=== PATIENT | female | born 1940 | race Caucasian/White ===

== ENCOUNTER 2017-03-18 17:42 | Inpatient (IN) | payer MEDICARE, OTHER ==
[~2017-03-18] VITALS: Ht 165.1 cm; Wt 70.5 kg
[2017-03-18] MEDS ORDERED: LUTE20TA PO (17:55)
[2017-03-18] MEDS ORDERED: FAMO20TA PO (17:55)
[2017-03-18] MEDS ORDERED: ASPI81TA85 PO (17:55)
[2017-03-18] MEDS ORDERED: COSO1SOL3 OD (17:55)
[2017-03-18] MEDS ORDERED: LEVO112T2 PO (17:55)
[2017-03-18] MEDS ORDERED: MIRA0.5T PO (17:55)
[2017-03-18] MEDS ORDERED: CALTCHW4 PO (17:55)
[2017-03-18] MEDS ORDERED: MORPHINE 4 MG/ML 1ML SYRINGE IV ONE (18:15)
[2017-03-18] MEDS ORDERED: ONDANSETRON 4MG/2ML VIAL (J2405) IV ONE (18:15)
--- NOTE | 2017-03-18 19:24 | REP ---
Clinical: Trauma. Technique: AP, lateral, bilateral oblique views of the left wrist. Findings: Advanced osteopenia and diffuse chronic arthritic degenerative changes are appreciated which somewhat limit evaluation for acute injury. However, acute intra-articular fracture of the distal radius as well as a possible acute transverse fracture through the scaphoid waist are suggested. Impression: 1. Limited by a advanced osteopenia and diffuse degenerative changes. 2. Acute intra-articular fracture of the distal radius and acute nondisplaced fracture of the scaphoid waist are suggested. Signed by Maynor Miles MD 03/18/2017 07:15 P
--- NOTE | 2017-03-18 19:26 | REP ---
Clinical: Trauma. Technique: AP view of the pelvis with neutral and cross-table lateral views of the left hip. Findings: Acute comminuted intertrochanteric fracture of the left hip is appreciated. Screws suggest prior femoral neck fracture pinning. Impression: Acute comminuted intertrochanteric fracture of the left hip. Signed by Maynor Miles MD 03/18/2017 07:17 P
[2017-03-18] MEDS ORDERED: SODIUM CHLORIDE 0.9% 1000 ML IV ONE (19:30)
[2017-03-18 19:40] LABS: MEAN CORPUSCULAR HGB CONC 32.5 g/dl (32.0-36.5); MEAN CORPUSCULAR VOLUME 98.3 fl (80.0-96.0); RED CELL DISTRIBUTION WIDTH 12.2 % (11.5-14.5); WHITE BLOOD COUNT 18.7 K/mm3 (4.0-10.0)
[2017-03-18 19:43] LABS: INR 1.01
[2017-03-18 19:49] LABS: CALCIUM LEVEL 9.1 MG/DL (8.8-10.2); CREATININE FOR GFR 1.23 MG/DL (0.55-1.02); GLOMERULAR FILTRATION RATE 45.1 (>39); POTASSIUM SERUM 4.4 MEQ/L (3.5-5.1)
[2017-03-18] MEDS ORDERED: VITMTA PO (19:57)
[2017-03-18] MEDS ORDERED: CALCCAP PO (19:57)
[2017-03-18] MEDS ORDERED: FAMO40TA3 PO (19:57)
[2017-03-18] MEDS ORDERED: DORZ2SOL5 OU (19:57)
[2017-03-18] MEDS ORDERED: TYLE650T35 PO (19:57)
[2017-03-18] MEDS ORDERED: ASPI81TAEC PO (19:57)
[2017-03-18] MEDS ORDERED: BRIM1OPD OS (19:57)
--- NOTE | 2017-03-18 20:17 | ECGEPIP ---
Stationary ECG Study [facility] - ED Test Date: 2017-03-18 Pat Name: ISAIAH FABIAN Department: Room: - Gender: F Resident Services Director: terrance : 1940 Requested By: Destiny Corey Order Number: [id number] Reading MD: Poncho Medina Measurements Intervals [place] Rate: 79 P: 70 WA: 158 QRS: 63 QRSD: 84 T: 66 QT: 379 QTc: 437 Interpretive Statements SINUS RHYTHM INC. RBBB POSSIBLE LAE NO PRIORS Electronically Signed On 03-18-2017 20:17:17 EDT by Poncho Medina
--- NOTE | 2017-03-18 20:24 | REP ---
Clinical: Preoperative assessment . Comparison: None . Findings: The mediastinum and cardiac silhouette are stable and within normal limits for portable technique. Airway is patent and midline. The lung herman demonstrate diffuse chronic interstitial changes without acute consolidation, effusion, or pneumothorax. Skeletal structures are intact. Impression: Chronic interstitial changes. No acute cardiopulmonary process appreciated. Signed by Maynor Miles MD 03/18/2017 08:16 P
[2017-03-18] MEDS ORDERED: COSOPT OCUMETER PLUS 10ML (DORZOLAMIDE/TIMOLOL) OU SCH (21:00)
[2017-03-18] MEDS ORDERED: BRIMONIDINE 0.1% OPHTH SOLN 5 ML OS SCH (21:00)
[2017-03-18] MEDS ORDERED: NS 1,000 ML IV SCH (21:12)
[2017-03-18] MEDS ORDERED: MORPHINE 4 MG/ML 1ML SYRINGE IV PRN (21:15)
[2017-03-18] MEDS ORDERED: MORPHINE 2 MG/ML 1ML SYRINGE IV PRN (21:15)
[2017-03-18] MEDS ORDERED: ACETAMINOPHEN 650MG ER TAB (TYLENOL ARTHRITIS) PO PRN (21:15)
[2017-03-18] MEDS ORDERED: ONDANSETRON 4MG/2ML VIAL (J2405) IV PRN (21:15)
--- NOTE | 2017-03-18 21:17 | IPNPDOC ---
VS, I&O, 24H, Fishbone Vital Signs/I&O Vital Signs Date Time Temp Pulse Resp B/P (MAP) Pulse Ox O2 Delivery O2 Flow Rate FiO2 03/18/17 20:41 86 107/57 (74) 03/18/17 19:57 97.6 20 95 Room Air Pt seen and examined by me. Chart and ecg reviewed by me. Pt h/o of hypothyroidism, RLS s/p mech fall with fx. Pt no hx of exertional cp, dyspnea, CAD and ecg no evidence of high degree AV block. Pt is low risk for a low-risk procedure (L ORIF) and may proceed to OR w/o additional cardiac work-up. Full note to follow. Laboratory Data 24H LABS Laboratory Tests 2 03/18/17 18:44: Prothrombin Time 13.4, Prothromb Time International Ratio 1.01, Anion Gap 12, Glomerular Filtration Rate 45.1, Blood Urea Nitrogen 26H, Creatinine 1.23H, Sodium Level 141, Potassium Level 4.4, Chloride Level 105, Carbon Dioxide Level 24, Calcium Level 9.1 CBC/BMP Laboratory Tests 03/18/17 18:44 Red Blood Count 3.38 L, Mean Corpuscular Volume 98.3 H, Mean Corpuscular Hemoglobin 32.0, Mean Corpuscular Hemoglobin Concent 32.5, Red Cell Distribution Width 12.2, Calcium Level 9.1 Maverick Carranza MD Mar 18, 2017 21:17
[2017-03-18] MEDS ORDERED: ceFAZolin 1GM INJ (J0690) As Ordered ONE (22:07)
[2017-03-18] MEDS ORDERED: BUPIVACAINE HCL 0.5% 30 ML VIAL As Ordered ONE (23:09)
[2017-03-18] MEDS ORDERED: KETAMINE HCL 200 MG/20 ML VIAL As Ordered ONE (23:09)
[2017-03-18] MEDS ORDERED: PROPOFOL 200 MG/20 ML VIAL As Ordered ONE (23:09)
[2017-03-18] MEDS ORDERED: MIDAZOLAM INJ 2 MG/2 ML VIAL (J2250) As Ordered ONE (23:09)
[2017-03-18] MEDS ORDERED: fentaNYL 100 MCG/2 ML INJECTION (J3010) As Ordered ONE (23:09)
[2017-03-18] MEDS ORDERED: PHENYLephrine HCL 500 MCG/5 ML (100MCG/ML) SYRINGE (J2370) As Ordered ONE ×2 (23:09→23:28)
[2017-03-18] MEDS ORDERED: LIDOCAINE 2% INJ 100 MG/5 ML SDV (FOR ANES.) As Ordered ONE (23:09)
[2017-03-19] VITALS (9 sets, daily range): BP systolic 85–120; BP diastolic 44–56
[2017-03-19] MEDS ORDERED: ONDANSETRON 4MG/2ML VIAL (J2405) IV PRN (01:15)
[2017-03-19] MEDS ORDERED: PERCOCET 5MG/325MG TAB PO PRN ×2 (01:15→02:00)
[2017-03-19] MEDS ORDERED: LR 1,000 ML IV SCH (01:15)
[2017-03-19] MEDS ORDERED: METOCLOPRAMIDE INJ 10MG/2ML VIAL (J2765) IV PRN (01:15)
[2017-03-19] MEDS ORDERED: MEPERIDINE INJ 25 MG/ML VIAL (J2175) IV PRN (01:15)
[2017-03-19] MEDS ORDERED: fentaNYL 100 MCG/2 ML INJECTION (J3010) IV PRN (01:15)
[2017-03-19] MEDS ORDERED: MEPERIDINE INJ 25 MG/ML VIAL (J2175) As Ordered ONE (01:17)
[2017-03-19] MEDS ORDERED: MORPHINE 2 MG/ML 1ML SYRINGE IV PRN (02:00)
[2017-03-19] MEDS ORDERED: NS 1,000 ML IV SCH (02:00)
[2017-03-19] MEDS: ceFAZolin SOD 1 GM in D5W MINI-BAG PLUS 50 ML IV SCH ×2 (05:07→14:07)
[2017-03-19] MEDS: LEVOTHYROXINE 112MCG TABLET (0.112MG) PO SCH (05:07)
[2017-03-19 07:10] LABS: MEAN CORPUSCULAR HEMOGLOBIN 32.5 pg (27.0-33.0); MEAN CORPUSCULAR HGB CONC 33.3 g/dl (32.0-36.5); MEAN CORPUSCULAR VOLUME 97.4 fl (80.0-96.0)
[2017-03-19 07:25] LABS: CALCIUM LEVEL 7.7 MG/DL (8.8-10.2); CREATININE FOR GFR 1.04 MG/DL (0.55-1.02); GLOMERULAR FILTRATION RATE 54.7 (>39); PHOSPHORUS LEVEL 4.9 MG/DL (2.5-4.9); POTASSIUM SERUM 4.3 MEQ/L (3.5-5.1)
--- NOTE | 2017-03-19 07:37 | REP ---
Clinical: Left hip fracture. Technique: AP and cross-table lateral views of the left femur. Findings: The the patient is status post intramedullary forest placement and kneeling through the femoral head/neck for acute intertrochanteric fracture. Satisfactory reduction. Overlying postoperative changes appreciated. Prior left knee replacement noted. Impression: Status post open reduction and fixation for acute intertrochanteric femoral fracture. Signed by Maynor Miles MD 03/19/2017 07:29 A
--- NOTE | 2017-03-19 07:38 | REP ---
Clinical: Left hip fracture. Technique: Single AP view of the pelvis. Findings: The patient is status post open reduction and fixation for left intertrochanteric hip fracture. Overlying postsurgical changes are appreciated. The pelvis appears intact. Evidence for prior right hip replacement. Impression: Postoperative changes related to left hip fracture. Signed by Maynor Miles MD 03/19/2017 07:30 A
--- NOTE | 2017-03-19 08:05 | REP ---
Clinical: Hardware removal. Technique: Intraoperative fluoroscopic imaging. Findings: The patient is status post hardware removal and open reduction/fixation for intertrochanteric femoral neck fracture. Final images demonstrate intramedullary forest and pinning through the femoral head neck with satisfactory reduction. Total fluoroscopic time 2 minutes 42 seconds. Impression: Status post open reduction and fixation for intertrochanteric femoral neck fracture. Signed by Maynor Miles MD 03/19/2017 07:57 A
[2017-03-19] MEDS: ENOXAPARIN 40 MG/0.4 ML SYRINGE (J1650) SC SCH (09:36)
[2017-03-19] MEDS: MIRALAX *UNIT DOSE* 17GM PACKET PO SCH (09:36)
[2017-03-19] MEDS: MOM 30ML SUSPENSION UDC PO SCH (09:36)
[2017-03-19] MEDS: COSOPT OCUMETER PLUS 10ML (DORZOLAMIDE/TIMOLOL) OU SCH ×2 (09:36→20:39)
[2017-03-19] MEDS: FAMOTIDINE 20 MG TAB PO SCH (09:36)
[2017-03-19] MEDS: SENOKOT S TAB PO SCH ×2 (09:36→20:39)
[2017-03-19] MEDS: BRIMONIDINE 0.1% OPHTH SOLN 5 ML OS SCH ×3 (09:36→20:39)
[2017-03-19] MEDS: PERCOCET 5MG/325MG TAB PO PRN ×3 (09:37→21:41)
--- NOTE | 2017-03-19 11:01 | RO ---
DATE OF PROCEDURE: 03/18/2017 PREOPERATIVE DIAGNOSIS: Left intertrochanteric hip fracture with retained hardware. POSTOPERATIVE DIAGNOSIS: Left intertrochanteric hip fracture with retained hardware, plus femoral shaft fracture. PROCEDURE PERFORMED: Left hip hardware removal, open reduction and cephalomedullary nailing. SURGEON: Daniel Bell MD POTTERY KILN BUILDER: JEN Horne, assistant broker. ANESTHESIA: Spinal. ESTIMATED BLOOD LOSS: 250 mL. IMPLANTS: Synthes trochanteric fixation nail, long. COMPLICATION: There was a femoral shaft fracture. No blood administered. DESCRIPTION OF PROCEDURE: The patient was identified in the preoperative holding area by name, medical record number and date of . The surgical site was marked in consultation with the patient and she was evaluated by anesthesia. When she was ready she was brought back to the operative suite on a gurney and transferred to the OR table. At this point, spinal anesthesia was induced without complication and she was transferred to the fracture table with the left lower extremity secured in the traction boot, appropriately padding all bony prominences. The left lower extremity was next sterilely prepped and draped in the usual fashion and prior to beginning the procedure, a final time out was performed and all agreed. She was given IV antibiotics prior to incision. I began the procedure by making a longitudinal dissection on the lateral thigh dissecting down to the skin and subcutaneous fat. I identified and removed the three cannulated hip screws without difficulty. Next, I performed a reduction of the left intertrochanteric hip fracture with traction, adduction and slight internal rotation. This resulted in a satisfactory reduction of the main fracture line. Next, through an incision proximal to the tip of the greater trochanter, the sharp awl was inserted and the correct entry point was identified. Using the awl, which was inserted into the medullary canal followed by the ball tipped Guidewire, followed by the entry reamer. Next, an intermediate nail was inserted and it confirmed a satisfactory intramedullary position with AP and lateral fluoroscopy. Next, the cephalic portion of the nail screw was inserted and appropriately sized, and at this point when turning to the distal interlock, it did identify a transverse fracture which had propagated just proximal to the tip of the nail but also distal to the interlock. As such, we elected to go forward with a long intramedullary nail to span the fracture site appropriately, and so the nail and the cephalomedullary screw were removed in their entirety and again confirmed satisfactory reduction and I reinserted the ball tipped Guidewire. Next, I sequentially reamed up to 12.5 achieving satisfactory chatter on the cortex. Next, an appropriately sized long trochanteric fixation nail was inserted and confirmed in satisfactory position with multiple fluoroscopic views in AP and lateral. Next, the head and neck guidepin and screw were inserted and locked proximally with satisfactory position and multiple fluoroscopic planes. Following this distally, a perfect [place] technique was used to place two distal interlock screws. Final fluoroscopic views in AP and lateral planes confirmed a satisfactory reduction of the fracture and placement of all hardware including a live fluoroscopy from full lateral to full AP confirmed that the tip of the femoral head screw was close to, but not penetrating the subchondral bone or the joint surface of the hip. So the wounds were next copiously irrigated and closed in layers. Of note, I did back off the proximal locking portion of the nail in order to allow some subsidence and compression with the fracture site. The wounds were again copiously irrigated and closed in layers. Sterile dressings were applied. The patient was brought out of anesthesia and transferred to the postanesthesia care unit (PACU) in stable condition.
--- NOTE | 2017-03-19 11:05 | HPE ---
DATE OF ADMISSION: 03/18/2017 CHIEF COMPLAINT: Left hip pain, left wrist pain, status post fall. HISTORY OF PRESENT ILLNESS: The patient missed a step this morning around 10:30 while visiting in [place] injuring her left hip and her left wrist with immediate pain and inability to bear weight. She was brought to the emergency room in [place] and ultimately elected to have her drive her here for care. She presents to the emergency room again complaining of isolated pain to the left hip and left wrist. There is no other active complaints. PAST MEDICAL HISTORY: Significant for hypothyroidism, multiple musculoskeletal issues including right hip replacement in 2014, bilateral total knee replacements, and left hip fracture repair in 2009. She does have a history of hypothyroidism and takes thyroxine daily as well as restless legs and takes Mirapex. PAST SURGICAL HISTORY: As above. MEDICATIONS: As above. Also a multivitamin and aspirin 81 mg nightly. REVIEW OF SYSTEMS: No fevers, chills, nausea, vomiting. No diarrhea. No constipation. No chest pain. No shortness of breath. ALLERGIES: None known. EXAMINATION: Awake, alert, and oriented times three. Well-appearing female in no acute distress. Appropriately dressed, well-nourished. Head is normocephalic, atraumatic. Extraocular muscles intact. Cervical spine: Range of motion is comfortable, pain free. Right upper extremity range of motion is comfortable and pain free. Right lower extremity range of motion is comfortable and generally pain free. Focus examination in the left hip: She has pain and tenderness isolating to the left hip joint where the local skin is intact. There is some local swelling distally. She has 2+ dorsalis pedis and posterior tibialis pulse with less than 2 seconds capillary refill in all of her toes with sensation intact to light touch. She has intact extensor hallucis longus (EHL), flexor hallucis longus (FHL), tibialis anterior, tibialis posterior. She has well-healed incisions about her left hip and left knee consistent with her prior surgeries. Focus examination of the left upper extremity: She has swelling and ecchymosis about the distal radius area. There is a slight superficial abrasion on this area. Range of motion generally is very comfortable. She is able to make a full composite fist and she is fully neurovascularly intact. She is able to flex and extend about 20-30 degrees very comfortably. Ipsilateral elbow and shoulder is generally atraumatic and comfortable range of motion. X-rays of the left wrist show an apparently acute nondisplaced intraarticular distal radius fracture as well as a scaphoid waist fracture and significant degenerative arthritis of the carpal joint. AP pelvis and left hip x-rays show the previous right total hip replacement as well as a previous left hip femoral neck fracture pending screws in place with an intertrochanteric fracture on the left hip, which is shortened and displaced extending to the lesser trochanter as well. ASSESSMENT: 1. Left hip retained hardware and intertrochanteric fracture. 2. Nondisplaced left scaphoid waist and distal radius fracture. PLAN: At this time, the hospitalist will evaluate, admit and provide preoperative clearance. I have discussed this as well with the hospitalist right now. He has cleared the patient to go forward with the surgery. I discussed the risks and benefits of treatment options with the patient. The surgical and nonsurgical management were discussed at length and ultimately, she did sign a consent to go forward with the left hip, open hardware removal, reduction and fracture repair with likely cephalomedullary nail, which will be done this evening if possible. In initially discussed the treatment options for her left wrist. She has had a previous similar fracture on the contralateral extremity and she is very comfortable with conservative management which would allow her maximum convenience and so she was placed in a thumb spica splint, she which had tolerated very well. She is very comfortable in that. She will have activity restrictions to protect the left hand and wrist. This is certainly non-weight bearing and a followup examination to discuss that these fractures could potentially displace and potentially she would be better managed in a splint or hard cast, but she has declined that at this time given her other extremity injuries, she would like to maintain more mobility and usage of her left hand, which is understandable.
[2017-03-19] MEDS: MULTIVITAMINS/MINERALS THERAP 1 TAB PO SCH (20:39)
[2017-03-19] MEDS: ASPIRIN 81 MG ENTERIC TAB PO SCH (20:39)
--- NOTE | 2017-03-19 22:24 | IPN ---
DATE: 03/19/2017 SUBJECTIVE: The patient is seen and examined in the room today. The patient does not have any acute complaints or acute changes. The patient tolerated the procedure well. The patient still has some discomfort at the right wrist from the fall. Pain medication has been able to help her manage the pain. OBJECTIVE: VITAL SIGNS: Temperature is 98.3, pulse is 89, respirations 16, blood pressure is 99/54. Pulse oximetry is 98% with 3 liters nasal cannula. GENERAL: No sign of acute distress. Alert and oriented times three. HEENT: Normocephalic, atraumatic. Extraocular motors are grossly intact. CARDIOVASCULAR: S1, S2. Regular rate. LUNGS: Clear to auscultation bilaterally. ABDOMEN: Soft, nontender, nondistended. Bowel sounds present. MUSCULOSKELETAL: There is a soft splint at the left wrist. No lower extremity edema. No sign of cyanosis. LABORATORY DATA: WBC 14, hemoglobin 7.9, hematocrit 22.5, platelet count is 211. Sodium is 142, potassium 4.3, chloride is 108, carbon dioxide 24, BUN 27, creatinine 1.04, GFR is 54.7, fasting glucose 122, calcium 7.7, phosphorous 4.9, magnesium 2. ASSESSMENT AND PLAN: 1. Left hip intertrochanteric fracture and left nondisplaced scaphoid, wrist and distal radius fracture. The patient had surgical repair on 03/18/2017 in the evening time and tolerated the procedure well; however, the patient did have blood loss that resulted in anemia. The patient is receiving 1 packed red blood cell transfusion. Pain control per orthopedic recommendations. We will defer diet, activity level and postoperative care to the orthopedic team. 2. Acute on chronic anemia. Acute blood loss from surgery and fractures. Chronic anemia and hemodilution. follow with H/H and blood transfusion if needed. 2. Hypothyroidism. The patient is on Synthroid. 3. Gastroesophageal reflux disease (GERD). On Pepcid. 4. Deep vein thrombosis (DVT) prophylaxis. The patient is on Lovenox. DISPOSITION: The patient expressed that she wished to continue the post surgical rehabilitation in [place] where she is originally from. We will continue to work with social services coordinator and case management to facilitate the process. RICHAR
[2017-03-20] MEDS: PERCOCET 5MG/325MG TAB PO PRN ×4 (02:34→21:44)
[2017-03-20] MEDS: LEVOTHYROXINE 112MCG TABLET (0.112MG) PO SCH (05:59)
[2017-03-20 06:00] VITALS: BP 106/52
[2017-03-20 07:13] LABS: MEAN CORPUSCULAR HEMOGLOBIN 31.8 pg (27.0-33.0); MEAN CORPUSCULAR HGB CONC 33.9 g/dl (32.0-36.5); MEAN CORPUSCULAR VOLUME 93.6 fl (80.0-96.0); RED CELL DISTRIBUTION WIDTH 13.7 % (11.5-14.5); WHITE BLOOD COUNT 9.7 K/mm3 (4.0-10.0)
[2017-03-20 07:36] LABS: ANION GAP 5 MEQ/L (8-16); BLOOD UREA NITROGEN 20 MG/DL (7-18); CALCIUM LEVEL 7.5 MG/DL (8.8-10.2); CARBON DIOXIDE LEVEL 29 MEQ/L (21-32); CHLORIDE LEVEL 106 MEQ/L (98-107); CREATININE FOR GFR 0.84 MG/DL (0.55-1.02); GLOMERULAR FILTRATION RATE > 60.0 (>39); GLUCOSE, FASTING 114 MG/DL (83-110); POTASSIUM SERUM 4.3 MEQ/L (3.5-5.1); SODIUM LEVEL 140 MEQ/L (136-145)
[2017-03-20] MEDS: MOM 30ML SUSPENSION UDC PO SCH (09:10)
[2017-03-20] MEDS: MIRALAX *UNIT DOSE* 17GM PACKET PO SCH (09:10)
[2017-03-20] MEDS: ENOXAPARIN 40 MG/0.4 ML SYRINGE (J1650) SC SCH (09:11)
[2017-03-20] MEDS: SENOKOT S TAB PO SCH ×2 (09:11→21:41)
[2017-03-20] MEDS: BRIMONIDINE 0.1% OPHTH SOLN 5 ML OS SCH ×3 (09:11→21:41)
[2017-03-20] MEDS: FAMOTIDINE 20 MG TAB PO SCH (09:11)
[2017-03-20] MEDS: COSOPT OCUMETER PLUS 10ML (DORZOLAMIDE/TIMOLOL) OU SCH ×2 (09:11→21:41)
[2017-03-20 14:00] VITALS: BP 136/60
[2017-03-20] MEDS: PRAMIPEXOLE 0.25 MG TAB PO PRN (14:53)
--- NOTE | 2017-03-20 20:06 | HPEPDOC ---
General Date of Admission Mar 18, 2017 at 20:29 Attending Physician: VEENA SHABAZZ DO Chief Complaint The patient is a 77-year-old female admitted with a reason for visit of Hip Fracture. Source: Patient Exam Limitations: Clinical conditions (L hip pain) History of Present Illness The patient is a 77-year-old female PMH of hypothyroidism, RLS and gerd who presents with mechanical fall while descending stairs while visiting [place]. Pt missed a stair and fell hitting her L side. Pt was taken to the ED in [place], but since she was not a citizen she would have had to pay for her care out-of- pocket. As a result, pt returned to [place] and came to [facility] ED. There she was dx with L intertrochanteric fracture and seen by orthopedics with planned surgery this evening. Pt was given morphine for her pain, which she reports was effective. Pt has no hx of exertional chest pain, dyspnea, palpitations, CAD, HTN, syncope, or known valvular dz. She has a PSH of cholecystectomy and R THR with no post-op complications and no adverse reactions to anesthesia and her exercise tolerance is unlimited (>4 MET). Home Medications Scheduled (Dorzolamide HCl/Timolol M 22.3-6.8 mg/ml) 1 Eliezer Eliezer, 1 ELIEZER OU BID, (Reported) Aspirin (Aspirin EC) 81 Mg Tabec, 81 MG PO QHS, (Reported) Brimonidine Tartrate 0.1% (Alphagan P) 100 Drop/5 Ml Soln, 1 DROP OS TID, ( Reported) Calcium/Vitamin D (Calcium/Vitamin D3 600-500 mg-Unit) 1 Cap Cap, 1 CAP PO BID, (Reported) Famotidine (Famotidine) 40 Mg Tab, 40 MG PO DAILY, (Reported) Levothyroxine Sodium (Synthroid) 112 Mcg Tab, 112 MCG PO DAILY, (Reported) Multivitamins *[facility] STOCKED* (Thera M Plus *[facility] STOCKED*) 1 Tab Tab, 1 TAB PO QHS , (Reported) Vegetable Enzyme (Lutein) 20 Mg Tab, 20 MG PO DAILY, (Reported) TAKES AROUND LUNCHTIME Scheduled PRN Acetaminophen (Tylenol 8 Hour Arthritis) 650 Mg Tab, 650 MG PO Q8H PRN for PAIN, (Reported) Pramipexole Dihydrochloride (Mirapex) 0.5 Mg Tab, 0.5 MG PO TID PRN for RESTLESS LEG SYNDROME, (Reported) Allergies Coded Allergies: No Known Allergies (Unverified , 03/18/17) Past Medical History Medical History 1. Hypothyroidism 2. RLS 3. GERD Surgical History 1. Cholecystectomy 2. R THR 3. L Hip fracture with screws Family History Significant Family History: No pertinent family hx Social History * Smoker: Denies Alcohol: Denies Recent Travel/Sick Contacts: Reports: Recent travel, Denies: Recent sick contacts Review of Symptoms Constitutional: Denies: Chills, Fever, Malaise, Weakness Eyes: Denies: Vision change ENT: Denies: Head Aches, Dysphagia Skin: Denies: Rash, Lesions Pulmonary: Denies: Dyspnea, Cough, Pleuritic Chest Pain Cardiovascular: Denies: Chest Pain, Palpitations, Orthopnea, Edema Gastrointestinal: Denies: Nausea, Vomiting, Abdominal Pain Hematologic: Denies: Bruising, Bleeding Excessively Endocrine: Denies: Polydipsia, Polyphagia, Polyuria Musculoskeletal: Reports: Joint Pain (L hip), Other Symptoms (RLS), Denies: Neck Pain, Back Pain, Leg Pain, Foot Pain, Muscle Pain Neurological: Denies: Weakness, Numbness, Change in speech Psych: Reports: Mood Normal, Denies: Anxiety, Depression Physical Examination General Exam: Positive: Alert, No Acute Distress Eye Exam: Positive: Conjunctiva & lids normal, Negative: Sclera icteric ENT Exam: Positive: Atraumatic, Mucous membr. moist/pink Neck Exam: Positive: Supple, JVD, Negative: Lymphadenopathy Chest Exam: Positive: Clear to auscultation, Normal air movement, Other ( Anterior exam), Negative: Rales, Rhonchi, Wheezing Heart Exam: Positive: Rate Normal, Regular Rhythm, Normal S1, Normal S2, Negative: Tachycardic, Bradycardic, Gallops, Murmurs, Rubs Telemetry: Positive: No significant arrhythmia Abdomen Exam: Positive: Normal bowel sounds, Soft, Negative: BS Hyperactive, BS Hypoactive, Tenderness, Hepatospenomegaly Extremity Exam: Positive: Normal pulses, Negative: Clubbing, Cyanosis, Edema Skin Exam: Positive: Nl turgor and temperature, Negative: Breakdown Neuro Exam: Positive: Normal Gait, Normal Speech Psych Exam: Positive: Mental status NL, Mood NL, Oriented x 3 Vital Signs Vital Signs Date Time Temp Pulse Resp B/P (MAP) Pulse Ox O2 Delivery O2 Flow Rate FiO2 03/18/17 20:41 86 107/57 (74) 03/18/17 19:57 97.6 20 95 Room Air Laboratory Data Labs 24H Laboratory Tests 2 03/18/17 18:44: Prothrombin Time 13.4, Prothromb Time International Ratio 1.01, Anion Gap 12, Glomerular Filtration Rate 45.1, Blood Urea Nitrogen 26H, Creatinine 1.23H, Sodium Level 141, Potassium Level 4.4, Chloride Level 105, Carbon Dioxide Level 24, Calcium Level 9.1 CBC/BMP Laboratory Tests 03/18/17 18:44 Red Blood Count 3.38 L, Mean Corpuscular Volume 98.3 H, Mean Corpuscular Hemoglobin 32.0, Mean Corpuscular Hemoglobin Concent 32.5, Red Cell Distribution Width 12.2, Calcium Level 9.1 Assessment/Plan This is a 77-year-old female PMH of hypothyroidism, RLS and gerd who presents with mechanical fall and L hip intertrochanteric fracture for ORIF 1. L Hip ORIF Pt has no hx of exertional cp, CAD, dyspnea, valvular heart dz or syncope Her ECG (reviewed by me) is NSR @79 with an incomplete RBBB, but otherwise no sig abnormality She is a low risk patient for a low risk procedure (L ORIF and forest for possible fx of femoral shaft) and may proceed to the OR without additional cardiac w/u. NPO NS at 100cc/hr Morphine 2mg q4 for moderate pain and 4mg q4 for severe pain. 2. Hypothyroidism Continue synthroid 3. RLS Continue mirapex tid prn RLS 4. Glaucoma Continue brimonidine and dorzolamide eye drops 5. DVT prophylaxis Lovenox sq Plan / VTE VTE Prophylaxis Ordered?: Yes Maverick Carranza MD Mar 18, 2017 21:35
--- NOTE | 2017-03-20 20:20 | IPN ---
DATE: 03/20/2017 SUBJECTIVE: Patient seen and examined in the room today. Patient stated her right wrist pain is improving. Patient's pain has been manageable. No overnight events reports. OBJECTIVE: VITAL SIGNS: Temperature is 99, pulse is 86, respiratory rate 18, blood pressure 106/52, pulse oximetry 94% in room air. GENERAL: No sign of acute distress, alert and oriented times three. HEENT: Normocephalic, atraumatic. Extraocular motor grossly intact. CARDIOVASCULAR: Positive S1, S2, regular rate. LUNGS: Clear to auscultation bilaterally. ABDOMEN: Soft, nontender, nondistended. Bowel sounds present. No rebound. No guarding. MUSCULOSKELETAL: Soft splint at the left wrist. There is a long dressing covering the left hip. No active discharge noted. Dressing dry and clean. No lower extremity edema. No sign of cyanosis. LABORATORY DATA: WBC is 14, hemoglobin 7.5 hematocrit 22.5, platelet count is 211. Sodium is 140, potassium 4.3, chloride 106, carbon dioxide 29, BUN 20, creatinine 0.84, GFR greater than 60, fasting glucose is 114, calcium 7.4. ASSESSMENT AND PLAN: 1. Left hip intertrochanteric fracture and left nondisplaced scaphoid, wrist, and distal radius fracture. Patient had hip surgery on 03/18/2017. Will refer to pain management, activity level, diet, and anticoagulation to the orthopedic team. 2. Acute on chronic anemia. Acute blood loss anemia from surgery and fractures. Patient had approximately 0.25 liters of blood loss from the surgery, and at the time of admission patient was very dehydrated. With fluid resuscitation patient started to show significant anemia. This morning patient has a hemoglobin of 7.5 after 1 packed red blood cells transfusion. Will continue to monitor hemoglobin and hematocrit. Will try to continue to support patient. The target hemoglobin goal is 8. 3. Hypothyroidism, on Synthroid. 4. Gastroesophageal reflux disease, on Pepcid. 5. Deep vein thrombosis (DVT), on Lovenox. MTDD
[2017-03-20] MEDS: ASPIRIN 81 MG ENTERIC TAB PO SCH (21:41)
[2017-03-20] MEDS: MULTIVITAMINS/MINERALS THERAP 1 TAB PO SCH (21:41)
[2017-03-20 22:00] VITALS: BP 133/58
[2017-03-21 06:00] VITALS: BP 128/63
[2017-03-21] MEDS: LEVOTHYROXINE 112MCG TABLET (0.112MG) PO SCH (06:33)
[2017-03-21 07:13] LABS: MEAN CORPUSCULAR HGB CONC 33.6 g/dl (32.0-36.5); MEAN CORPUSCULAR VOLUME 89.3 fl (80.0-96.0); RED CELL DISTRIBUTION WIDTH 17.6 % (11.5-14.5); WHITE BLOOD COUNT 11.7 K/mm3 (4.0-10.0)
[2017-03-21 07:50] LABS: ANION GAP 7 MEQ/L (8-16); BLOOD UREA NITROGEN 12 MG/DL (7-18); CALCIUM LEVEL 7.6 MG/DL (8.8-10.2); CARBON DIOXIDE LEVEL 28 MEQ/L (21-32); CHLORIDE LEVEL 104 MEQ/L (98-107); CREATININE FOR GFR 0.63 MG/DL (0.55-1.02); GLOMERULAR FILTRATION RATE > 60.0 (>39); GLUCOSE, FASTING 114 MG/DL (83-110); SODIUM LEVEL 139 MEQ/L (136-145)
[2017-03-21] MEDS: MOM 30ML SUSPENSION UDC PO SCH (08:14)
[2017-03-21] MEDS: SENOKOT S TAB PO SCH ×2 (08:14→20:26)
[2017-03-21] MEDS: MIRALAX *UNIT DOSE* 17GM PACKET PO SCH (08:14)
[2017-03-21] MEDS: FAMOTIDINE 20 MG TAB PO SCH (08:14)
[2017-03-21] MEDS: ENOXAPARIN 40 MG/0.4 ML SYRINGE (J1650) SC SCH (08:14)
[2017-03-21] MEDS: COSOPT OCUMETER PLUS 10ML (DORZOLAMIDE/TIMOLOL) OU SCH ×2 (08:15→20:27)
[2017-03-21] MEDS: BRIMONIDINE 0.1% OPHTH SOLN 5 ML OS SCH ×3 (08:15→20:27)
[2017-03-21] MEDS: PERCOCET 5MG/325MG TAB PO PRN ×3 (08:15→20:25)
[2017-03-21] MEDS: PRAMIPEXOLE 0.25 MG TAB PO PRN ×2 (08:49→20:25)
[2017-03-21 10:39] LABS: MEAN CORPUSCULAR HGB CONC 34.7 g/dl (32.0-36.5); MEAN CORPUSCULAR VOLUME 89.3 fl (80.0-96.0); RED CELL DISTRIBUTION WIDTH 17.1 % (11.5-14.5); WHITE BLOOD COUNT 11.6 K/mm3 (4.0-10.0)
--- NOTE | 2017-03-21 17:00 | IPN ---
DATE: 03/21/2017 SUBJECTIVE: The patient is seen and examined in the room today. The patient does not complain of acute changes. Pain is controlled. The patient tolerated diet well. No overnight events reported. OBJECTIVE: VITAL SIGNS: Temperature 99.1, pulse is 68, respirations 15, blood pressure is 128/63, pulse oximetry 99% on room air. GENERAL: No sign of acute distress. Alert and oriented times three. HEENT: Normocephalic, atraumatic. Extraocular motor grossly intact. CARDIOVASCULAR: Positive S1, S2. Regular rate. LUNGS: Clear to auscultation bilaterally. ABDOMEN: Soft, nontender, nondistended. Bowel sounds present. No rebound, no guarding. MUSCULOSKELETAL: There are four separate surgical dressings located at the left hip. Dressings are clean and dry. No active discharge or bleeding. No lower extremity edema. No sign of cyanosis. LABORATORY DATA: WBC is 11.7, hemoglobin 7.5, hematocrit 22.4, platelet count 157. Sodium 139, potassium 4, chloride 104, carbon dioxide 28, BUN 12, creatinine 0.63, GFR greater than 60, fasting glucose 114, calcium 7.6. ASSESSMENT AND PLAN: 1. Acute on chronic anemia secondary to chronic anemia and mack-surgical blood loss and hemodilution and fractures. This morning, the patient has a hemoglobin of 7.5. We will order another unit of packed red blood cells. No sign of active bleeding. Continue to monitor hemoglobin and hematocrit (H and H). 2. Left hip intertrochanteric fracture and left displaced scaphoid in wrist and distal radius fracture. The patient had hip surgery on 03/18/2017, evening time. We will defer pain management, activity level, diet, and anticoagulation to orthopedic team. 3. Hypothyroidism on Synthroid. 4. Gastroesophageal reflux disease on Pepcid. 5. Deep venous thrombosis (DVT) prophylaxis on Lovenox. DISPOSITION: The patient's primary residence is in [place]. The patient will like to pursue rehabilitation in a [place] rehabilitation facility. The facility has been contacted. Currently they do not have a bed available for the patient. The patient will continue to work with physical therapy at [facility]. We anticipate the patient may be discharged and continue rehabilitation in the [place] rehabilitation facility on 03/24/2017. RICHAR
[2017-03-21] MEDS: MULTIVITAMINS/MINERALS THERAP 1 TAB PO SCH (20:26)
[2017-03-21] MEDS: ASPIRIN 81 MG ENTERIC TAB PO SCH (20:26)
[2017-03-21 22:00] VITALS: BP 122/58
[2017-03-22] MEDS: PERCOCET 5MG/325MG TAB PO PRN ×4 (01:58→20:37)
[2017-03-22] MEDS: LEVOTHYROXINE 112MCG TABLET (0.112MG) PO SCH (05:16)
[2017-03-22 06:00] VITALS: BP 121/55
[2017-03-22 06:23] LABS: MEAN CORPUSCULAR HEMOGLOBIN 30.4 pg (27.0-33.0); MEAN CORPUSCULAR HGB CONC 33.8 g/dl (32.0-36.5); RED CELL DISTRIBUTION WIDTH 17.2 % (11.5-14.5); WHITE BLOOD COUNT 9.2 K/mm3 (4.0-10.0)
[2017-03-22 06:45] LABS: ANION GAP 5 MEQ/L (8-16); BLOOD UREA NITROGEN 12 MG/DL (7-18); CALCIUM LEVEL 7.9 MG/DL (8.8-10.2); CARBON DIOXIDE LEVEL 29 MEQ/L (21-32); CHLORIDE LEVEL 104 MEQ/L (98-107); CREATININE FOR GFR 0.59 MG/DL (0.55-1.02); GLOMERULAR FILTRATION RATE > 60.0 (>39); GLUCOSE, FASTING 98 MG/DL (83-110); POTASSIUM SERUM 3.9 MEQ/L (3.5-5.1); SODIUM LEVEL 138 MEQ/L (136-145)
[2017-03-22] MEDS: ENOXAPARIN 40 MG/0.4 ML SYRINGE (J1650) SC SCH (08:44)
[2017-03-22] MEDS: FAMOTIDINE 20 MG TAB PO SCH (08:44)
[2017-03-22] MEDS: BRIMONIDINE 0.1% OPHTH SOLN 5 ML OS SCH ×3 (08:44→20:35)
[2017-03-22] MEDS: MOM 30ML SUSPENSION UDC PO SCH (08:44)
[2017-03-22] MEDS: COSOPT OCUMETER PLUS 10ML (DORZOLAMIDE/TIMOLOL) OU SCH ×2 (08:44→20:35)
[2017-03-22] MEDS: MIRALAX *UNIT DOSE* 17GM PACKET PO SCH (08:45)
[2017-03-22] MEDS: SENOKOT S TAB PO SCH ×2 (08:45→20:38)
--- NOTE | 2017-03-22 10:30 | REP ---
Clinical: Status post open reduction and fixation. Technique: AP and cross-table lateral views of the left femur. Findings: The patient is status post open reduction and fixation for intertrochanteric femoral neck fracture. Intermedullary forest and pinning through the femoral head neck with satisfactory reduction to the hip fracture noted. Further evaluation of the femur demonstrates subtle nondisplaced oblique fracture of the mid femoral shaft which was not identifiable on original left hip series. Impression: 1. Status post open reduction and fixation for intertrochanteric left hip fracture with satisfactory reduction. 2. Subtle oblique nondisplaced fracture of the mid femoral shaft which was not identifiable on original left hip series. Signed by Maynor Miles MD 03/22/2017 10:21 A
[2017-03-22 14:00] VITALS: BP 122/59
[2017-03-22] MEDS: PRAMIPEXOLE 0.25 MG TAB PO PRN ×2 (15:03→20:37)
[2017-03-22] MEDS: MULTIVITAMINS/MINERALS THERAP 1 TAB PO SCH (20:37)
[2017-03-22] MEDS: ASPIRIN 81 MG ENTERIC TAB PO SCH (20:38)
--- NOTE | 2017-03-22 20:47 | IPN ---
DATE: 03/22/2017 SUBJECTIVE: The patient is seen and examined in the room today. The patient denies any acute changes or complaints. OBJECTIVE: VITAL SIGNS: Temperature 98.7, pulse 78, respirations 20, blood pressure 121/55, pulse oximetry 94% on room air. GENERAL: No sign of acute distress. Alert and oriented times three. HEENT: Normocephalic, atraumatic. Extraocular motor grossly intact. CARDIOVASCULAR: Positive S1, S2. Regular rate. LUNGS: Clear to auscultation bilaterally. ABDOMEN: Soft, nontender, nondistended. Bowel sounds present. No rebound or guarding. MUSCULOSKELETAL: There are four separate surgical dressings located at the left lateral hip. There is some visible old bruises posterior to the second dressing. No sign of cyanosis. LABORATORY DATA: WBC is 9.2, hemoglobin 8, hematocrit 23.6, platelet count is 183. Sodium 138, potassium 3.9, chloride 104, carbon dioxide 29, BUN 12, creatinine 0.59, GFR greater than 60, fasting glucose 95, calcium 7.9. ASSESSMENT AND PLAN: 1. Acute on chronic anemia secondary to chronic anemia and mack-surgical blood loss and hemodilution and fractures. Will follow with hemoglobin and hematocrit. If patient's hemoglobin drops below eight, we will continue to transfuse. 2. Left hip intertrochanteric fracture and left displaced scaphoid and wrist and distal radius fracture. The patient had hip surgery on 03/18/2017. In the meantime, we will defer to pain management the activity level, diet, and anticoagulation to the orthopedic team. 3. Hypothyroidism on Synthroid. 4. Gastroesophageal reflux disease on Pepcid. 5. Deep venous thrombosis (DVT) prophylaxis on Lovenox. MTDD
[2017-03-22 22:00] VITALS: BP 115/57
[2017-03-23] MEDS: PERCOCET 5MG/325MG TAB PO PRN ×4 (04:25→22:00)
[2017-03-23] MEDS: PRAMIPEXOLE 0.25 MG TAB PO PRN ×2 (04:32→22:05)
[2017-03-23] MEDS: LEVOTHYROXINE 112MCG TABLET (0.112MG) PO SCH (05:31)
[2017-03-23 06:00] VITALS: BP 120/58
[2017-03-23 07:05] LABS: MEAN CORPUSCULAR HEMOGLOBIN 30.6 pg (27.0-33.0); MEAN CORPUSCULAR HGB CONC 33.5 g/dl (32.0-36.5); MEAN CORPUSCULAR VOLUME 91.1 fl (80.0-96.0); RED CELL DISTRIBUTION WIDTH 17.1 % (11.5-14.5); WHITE BLOOD COUNT 7.8 K/mm3 (4.0-10.0)
[2017-03-23 07:14] LABS: ANION GAP 4 MEQ/L (8-16); BLOOD UREA NITROGEN 16 MG/DL (7-18); CALCIUM LEVEL 7.6 MG/DL (8.8-10.2); CARBON DIOXIDE LEVEL 29 MEQ/L (21-32); CHLORIDE LEVEL 105 MEQ/L (98-107); CREATININE FOR GFR 0.59 MG/DL (0.55-1.02); GLOMERULAR FILTRATION RATE > 60.0 (>39); GLUCOSE, FASTING 93 MG/DL (83-110); POTASSIUM SERUM 3.6 MEQ/L (3.5-5.1); SODIUM LEVEL 138 MEQ/L (136-145)
[2017-03-23] MEDS: FAMOTIDINE 20 MG TAB PO SCH (08:47)
[2017-03-23] MEDS: SENOKOT S TAB PO SCH ×2 (08:47→19:56)
[2017-03-23] MEDS: MOM 30ML SUSPENSION UDC PO SCH (08:48)
[2017-03-23] MEDS: ENOXAPARIN 40 MG/0.4 ML SYRINGE (J1650) SC SCH (08:48)
[2017-03-23] MEDS: MIRALAX *UNIT DOSE* 17GM PACKET PO SCH (08:48)
[2017-03-23] MEDS: COSOPT OCUMETER PLUS 10ML (DORZOLAMIDE/TIMOLOL) OU SCH ×2 (08:49→19:56)
[2017-03-23] MEDS: BRIMONIDINE 0.1% OPHTH SOLN 5 ML OS SCH ×3 (08:49→19:56)
[2017-03-23] MEDS ORDERED: PERC5TAB12 PO (08:56)
[2017-03-23] MEDS ORDERED: LOVE1INJ SC (08:56)
[2017-03-23] MEDS ORDERED: PERCOCET 5MG/325MG TAB PO ONE (09:00)
[2017-03-23 14:00] VITALS: BP 119/60
--- NOTE | 2017-03-23 16:16 | IPN ---
DATE: 03/23/2017 SUBJECTIVE: The patient is seen and examined in the room today. The patient's pain is managed with pain medication. No overnight events reported. OBJECTIVE: VITAL SIGNS: Temperature is 98.3, pulse 72, respirations 18, blood pressure 120/58, pulse oximetry 98% on room air. GENERAL: No sign of acute distress. Alert and oriented times three. HEENT: Normocephalic, atraumatic. Extraocular motor grossly intact. CARDIOVASCULAR: Positive S1, S2. Regular rate. LUNGS: Clear to auscultation bilaterally. ABDOMEN: Soft, nontender, nondistended. Bowel sounds present. No rebound, no guarding. MUSCULOSKELETAL: Four separate surgical dressings located at the left lateral hip. There are some bruises posterior to the second dressing. No sign of cyanosis. LABORATORY DATA: WBC 7.8, hemoglobin 8, hematocrit 24, platelet count 244. Sodium 138, potassium 3.6, chloride 105, carbon dioxide 29, BUN 16, creatinine 0.59, GFR greater than 60, fasting glucose 93, calcium 7.6. ASSESSMENT AND PLAN: 1. Acute on chronic anemia secondary to chronic anemia and mack-surgical blood loss (acute blood loss) and hemodilution and from fracture. The patient had multiple blood transfusions. Continue to follow hemoglobin and hematocrit (H and H). 2. Left hip intertrochanteric fracture and a left displaced scaphoid wrist and distal radius fracture. The patient had hip surgery on 03/18/2017. I will refer the activity level, diet and anticoagulation to the orthopedic team. The patient is scheduled to go to an acute rehabilitation facility in [place] tomorrow morning. 3. Hypothyroidism on Synthroid. 4. Gastroesophageal reflux disease on Pepcid. 5. Deep venous thrombosis (DVT) prophylaxis on Lovenox. MTDD
[2017-03-23] MEDS: MULTIVITAMINS/MINERALS THERAP 1 TAB PO SCH (19:56)
[2017-03-23] MEDS: ASPIRIN 81 MG ENTERIC TAB PO SCH (19:56)
[2017-03-23 22:00] VITALS: BP 135/59
[2017-03-24] MEDS: PERCOCET 5MG/325MG TAB PO PRN ×2 (03:34→08:19)
[2017-03-24] MEDS: LEVOTHYROXINE 112MCG TABLET (0.112MG) PO SCH (05:37)
[2017-03-24 06:00] VITALS: BP 130/63
[2017-03-24 06:30] LABS: MEAN CORPUSCULAR HEMOGLOBIN 30.8 pg (27.0-33.0); MEAN CORPUSCULAR HGB CONC 33.1 g/dl (32.0-36.5); RED CELL DISTRIBUTION WIDTH 17.2 % (11.5-14.5); WHITE BLOOD COUNT 6.9 K/mm3 (4.0-10.0)
[2017-03-24 06:49] LABS: ANION GAP 6 MEQ/L (8-16); BLOOD UREA NITROGEN 17 MG/DL (7-18); CALCIUM LEVEL 8.2 MG/DL (8.8-10.2); CARBON DIOXIDE LEVEL 29 MEQ/L (21-32); CHLORIDE LEVEL 105 MEQ/L (98-107); GLOMERULAR FILTRATION RATE > 60.0 (>39); GLUCOSE, FASTING 89 MG/DL (83-110); POTASSIUM SERUM 3.8 MEQ/L (3.5-5.1); SODIUM LEVEL 140 MEQ/L (136-145)
[2017-03-24] MEDS: FAMOTIDINE 20 MG TAB PO SCH (08:19)
[2017-03-24] MEDS: PRAMIPEXOLE 0.25 MG TAB PO PRN (08:19)
[2017-03-24] MEDS: ENOXAPARIN 40 MG/0.4 ML SYRINGE (J1650) SC SCH (08:20)
[2017-03-24] MEDS: COSOPT OCUMETER PLUS 10ML (DORZOLAMIDE/TIMOLOL) OU SCH (08:20)
[2017-03-24] MEDS: MOM 30ML SUSPENSION UDC PO SCH (08:20)
[2017-03-24] MEDS: BRIMONIDINE 0.1% OPHTH SOLN 5 ML OS SCH (08:20)
[2017-03-24] MEDS: MIRALAX *UNIT DOSE* 17GM PACKET PO SCH (08:21)
[2017-03-24] MEDS: SENOKOT S TAB PO SCH (08:21)
--- NOTE | 2017-03-24 16:37 | DSES ---
DATE OF ADMISSION: 03/18/2017 DATE OF DISCHARGE: 03/24/2017 PRIMARY CARE PROVIDER: In [place]. CONSULTANTS: Orthopedic surgery. PROCEDURES: Left hip hardware removal, open reduction and cephalomedullary nailing by Dr. Bell on 03/18/2017. COMPLICATIONS: None. ESTIMATED BLOOD LOSS: During surgery is 250 mL. DISCHARGE DIAGNOSES: 1. Left hip intertrochanteric fracture, left displaced scaphoid wrist and distal radius fracture. 2. Acute on chronic anemia secondary to chronic anemia and mack-surgical blood loss and hemodilution and from fractures. 3. Hypothyroidism. 4. Gastroesophageal reflux disease. HOSPITAL COURSE: The patient is a 77-year-old female who presented to [facility] on 03/18/2017 after a mechanical fall. The patient was found to have a left wrist fracture and left hip fracture. The patient had surgical repair by orthopedic team on 03/18/2017. The patient tolerated the procedure well. The patient was maintained on IV fluid. After surgery, the patient showed continued decrease of hemoglobin and hematocrit, to the point that hemoglobin was 6.7. The patient's hemoglobin and hematocrit have been followed closely. The patient has received three packed red blood cell transfusions during this hospitalization. The patient continued to follow with physical therapy while the patient was inpatient. On 03/24/2017, the patient has acceptance to the acute rehabilitation facility in [place] and the patient is discharged. OBJECTIVE: VITAL SIGNS: Temperature 98.5, pulse is 73, respirations 18, blood pressure is 130/63, pulse oximetry is 95% on room air. LABORATORY DATA: WBC is 6.9, hemoglobin 8.2, hematocrit 24.8, platelet count is 269. On 03/20/2017, the patient had a hemoglobin of 6.7 with a hematocrit of 19.8. Sodium 140, potassium 3.8, chloride 105, carbon dioxide 29, BUN 17, creatinine 0.6, GFR greater than 60, fasting glucose is 89, calcium is 8.2. IMAGING STUDIES: Left wrist x-ray on 03/18/2017 showed acute intraarticular fracture of the distal radius and nondisplaced fracture of the scaphoid waist. Left hip x-ray on 03/18/2017 showed acute comminuted intertrochanteric fracture of the left hip. Chest x-ray on 03/18/2017 showed chronic interstitial changes. No acute cardiopulmonary process appreciated. Left femur x-ray on 03/22/2017 showed subtle oblique nondisplaced fracture of the mid femoral shaft, status post open reduction and fixation for intertrochanteric left hip fracture with satisfactory reduction. DISCHARGE MEDICATIONS: - Lovenox 40 mg subcutaneous daily - Percocet 1-2 tablets by mouth every four hours as needed - Tylenol 650 mg by mouth every eight hours as needed - aspirin 81 mg by mouth at bedtime - calcium/vitamin D supplement one tablet by mouth twice a day - dorzolamide/timolol in each eye twice a day - famotidine 40 mg by mouth daily - Synthroid 12 mcg by mouth daily - multivitamin one tablet by mouth daily - Mirapex 0.5 mg by mouth three times a day as needed for restless legs - lutein 20 mg by mouth daily DISCHARGE INSTRUCTIONS: Discharge to acute rehabilitation facility in [place]. Activity as per rehabilitation instructions. Low-salt diet as tolerated. The patient should followup with primary care provider 1-2 weeks after finishing rehabilitation. DISCHARGE CONDITION: Stable. DISCHARGE TIME: Greater than 30 minutes. MTDD
== END 2017-03-24 10:35 | DRG 481 ==
LOC: M ED 17:42 → M ED INP 20:29 → M MS5PR 03-19 02:07
PROVIDERS: ATTEND Internal Medicine
PROC: 0QP704Z Removal of Internal Fixation Device from Left Upper Femur, Open Approach (ICD-10-PCS; 2017-03-18)
PROC: 0QS906Z Reposition Left Femoral Shaft with Intramedullary Internal Fixation Device, Open Approach (ICD-10-PCS; principal; 2017-03-18 19:56)
PROC: 30233N1 Transfusion of Nonautologous Red Blood Cells into Peripheral Vein, Percutaneous Approach (ICD-10-PCS; 2017-03-19)
DX: S72.142A Displaced intertrochanteric fracture of left femur, initial encounter for closed fracture (principal); D62 Acute posthemorrhagic anemia; S52.592A Other fractures of lower end of left radius, initial encounter for closed fracture; S72.355A Nondisplaced comminuted fracture of shaft of left femur, initial encounter for closed fracture; E03.9 Hypothyroidism, unspecified; K21.9 Gastro-esophageal reflux disease without esophagitis; Z79.899 Other long term (current) drug therapy; Z79.82 Long term (current) use of aspirin; W10.9XXA Fall (on) (from) unspecified stairs and steps, initial encounter; Y92.009 Unspecified place in unspecified non-institutional (private) residence as the place of occurrence of the external cause; G25.81 Restless legs syndrome